=== PATIENT | male | born 1970 ===

== ENCOUNTER 2019-03-14 18:11 | Emergency (ER) | payer MEDICAID ==
[~2019-03-14] VITALS: Ht 182.9 cm; Wt 117.0 kg
[2019-03-14 18:23] VITALS: Ht 182.9 cm; Wt 117.0 kg
[2019-03-14 18:51] VITALS: BP 133/78
== END 2019-03-14 18:51 | disposition other institution (70) ==
LOC: ED 18:11
DX: L08.9 Local infection of the skin and subcutaneous tissue, unspecified (principal); F19.10 Other psychoactive substance abuse, uncomplicated
CPT/HCPCS: J0696

== ENCOUNTER 2019-03-14 18:11 | Emergency (ER) | payer OTHER | END 2019-03-14 18:51 | disposition other institution (70) | LOC: ED 18:11 | DX: Z02.89 Encounter for other administrative examinations (principal) ==

== ENCOUNTER 2019-11-22 14:14 | Emergency (ER) | payer MEDICAID ==
[~2019-11-22] VITALS: Ht 185.4 cm; Wt 108.9 kg
[2019-11-22 14:25] VITALS: Ht 185.4 cm; Wt 108.9 kg
[2019-11-22 15:35] VITALS: BP 145/91
== END 2019-11-22 15:36 | disposition other institution (70) ==
LOC: ED 14:14
DX: T40.1X1A Poisoning by heroin, accidental (unintentional), initial encounter (principal); Y92.89 Other specified places as the place of occurrence of the external cause
CPT/HCPCS: J2310

== ENCOUNTER 2019-11-22 14:14 | Emergency (ER) | payer OTHER | END 2019-11-22 15:36 | disposition other institution (70) | LOC: ED 14:14 | DX: Z02.89 Encounter for other administrative examinations (principal) ==